=== PATIENT | male | born 1965 | race Caucasian/White ===

== ENCOUNTER 2021-12-17 13:45 | Emergency (ER) | payer SELFPAY ==
[~2021-12-17] VITALS: Ht 198.1 cm; Wt 122.5 kg
--- NOTE | 2021-12-17 14:14 | NUR ---
SAO2 1005 , afebrile at 97.9(o), PT WAS INFORMED TO WAIT OUTSIDE FOR MD THERE WAS NO ISOLATION ROOM AVAILABLE AT THE MOMENT . PT DECIDED TO WALK OUT AND LEAVE INSTEAD OF WAITING FOR MD TO BE SEEN.
== END 2021-12-18 10:38 | disposition left against medical advice (07) ==
LOC: ER 13:45
DX: Z53.21 Procedure and treatment not carried out due to patient leaving prior to being seen by health care provider (principal)

== ENCOUNTER 2022-10-14 03:18 | Emergency (ER) | payer MEDICAID ==
[~2022-10-14] VITALS: Ht 198.1 cm; Wt 106.6 kg
--- NOTE | 2022-10-14 03:27 | NUR ---
Dr Mcclain at bedside, MSE in progress
[2022-10-14] MEDS ORDERED: MORPHINE SULFATE 2 MG/1 ML DISP.SYRIN IV ONE (03:45)
[2022-10-14] MEDS ORDERED: MORPHINE SULFATE 4 MG/1 ML DISP.SYRIN ONE (03:45)
[2022-10-14] MEDS ORDERED: KETOROLAC TROMETHAMINE 15 MG INJ ONE (03:45)
[2022-10-14] MEDS ORDERED: ONDANSETRON 4 MG/2 ML VIAL ONE (03:45)
[2022-10-14] MEDS ORDERED: KETOROLAC TROMETHAMINE 15 MG INJ IVP ONE (03:45)
[2022-10-14] MEDS ORDERED: IV NORMAL SALINE 1000 ML BAG IV ONE (03:45)
[2022-10-14] MEDS ORDERED: ONDANSETRON 4 MG/2 ML VIAL IV ONE (03:45)
[2022-10-14 03:56] LABS: HEMATOCRIT 38.2 % (36.7-47.1); MEAN CORPUSCULAR HEMOGLOBIN 32.5 uug (23.8-33.4); MEAN CORPUSCULAR VOLUME 91.1 fL (73.0-96.2); PLATELET COUNT (AUTO) 310 K/uL (152-348)
[2022-10-14 04:08] LABS: BILIRUBIN,DIRECT 0.1 mg/dL (0.0-0.2); BILIRUBIN,TOTAL 0.2 mg/dL (0.2-1.0); CREATININE 1.2 mg/dL (0.6-1.3); POTASSIUM 3.7 mmol/L (3.5-5.1); TOTAL PROTEIN, SERUM 7.4 g/dL (6.4-8.2)
[2022-10-14 05:32] LABS: *CLARITY,URINE CLEAR (CLEAR)
[2022-10-14 05:33] LABS: *BLOOD, URINE 1+ (NEGATIVE); *COLOR,URINE YELLOW (YELLOW); PH,URINE 6.5 (5.0-8.0); UGLUCOSE NEGATIVE (NEGATIVE)
[2022-10-14 05:34] LABS: *BILIRUBIN,URIN NEGATIVE (NEGATIVE); *KETONES,URINE NEGATIVE (NEGATIVE); *UROBILINOGEN,URINE 0.2 E.U./dl (NORMAL); LEUKOCYTE ESTERASE ,URINE NEGATIVE (NEGATIVE); NITRITE, URINE NEGATIVE (NEGATIVE); WBC,URINE 0-3 /HPF (0-3)
[2022-10-14 05:35] LABS: BACTERIA,URINE NONE SEEN /HPF (NONE SEEN); SQUAMOUS EPITHELIAL CELL,UR NONE SEEN /HPF (NONE SEEN)
--- NOTE | 2022-10-14 06:51 | NUR ---
SBAR to Leslye ALMENDAREZ
--- NOTE | 2022-10-14 07:15 | NUR ---
Patient denies shortness of breath, no acute distress noted.
--- NOTE | 2022-10-14 07:47 | NUR ---
Patient has no complaints of distress at the moment. Able to ambulate.
--- NOTE | 2022-10-14 07:47 | NUR ---
Patient discharged to home in stable condition. Written and verbal after care instructions given. Patient verbalizes understanding of instructions. Advised to follow liquid diet for the next 24 hours. Stressed follow up or return to ER for worsening s/s.
[2022-10-14 07:49] VITALS: BP 121/79
== END 2022-10-14 07:47 | disposition home or self-care (01) ==
LOC: ER 03:22
DX: R10.11 Right upper quadrant pain (principal); R31.9 Hematuria, unspecified; R94.8 Abnormal results of function studies of other organs and systems
CPT/HCPCS: 99285; 74176; 96374; 71045; 96375; 96361; 80076; 80048; 81001; 83690; 85025; 36415; 93005; J1885; J2405; J2270; J7040; A4663

== ENCOUNTER 2023-12-08 03:23 | Emergency (ER) | payer OTHER ==
[~2023-12-08] VITALS: Ht 198.1 cm; Wt 111.1 kg
[2023-12-08 04:29] VITALS: BP 131/86; O2SAT 98
== END 2023-12-08 04:30 | disposition home or self-care (01) ==
LOC: ER 03:29
DX: S83.91XA Sprain of unspecified site of right knee, initial encounter (principal); S80.11XA Contusion of right lower leg, initial encounter; W01.0XXA Fall on same level from slipping, tripping and stumbling without subsequent striking against object, initial encounter; Y93.89 Activity, other specified; Y92.89 Other specified places as the place of occurrence of the external cause; Y99.8 Other external cause status
CPT/HCPCS: 73502; 73590; A4606; A4663